=== PATIENT | female | born 1975 | race Two or more races ===

== ENCOUNTER 2020-08-21 17:14 | Emergency (ER) | payer MEDICAID, OTHER ==
[~2020-08-21] VITALS: Ht 170.2 cm; Wt 86.2 kg
[2020-08-21] MEDS ORDERED: IBUPROFEN 600 MG TAB PO ONE (17:30)
[2020-08-21] MEDS ORDERED: traMADol HCL 50 MG TAB PO ONE (19:00)
[2020-08-21 19:43] VITALS: BP 154/93
== END 2020-08-21 19:45 | disposition home or self-care (01) ==
LOC: EDBD 17:14 → ER 17:14
DX: S93.401A Sprain of unspecified ligament of right ankle, initial encounter (principal); W22.8XXA Striking against or struck by other objects, initial encounter; Y93.01 Activity, walking, marching and hiking; Y92.89 Other specified places as the place of occurrence of the external cause; Y99.8 Other external cause status
CPT/HCPCS: 73610